=== PATIENT | male | born 1990 | race Caucasian/White ===

== ENCOUNTER 2017-01-23 13:53 | Emergency (ER) | payer SELFPAY ==
[2017-01-23 14:08] VITALS: BP 151/66
--- NOTE | 2017-01-25 11:43 | UC ---
Ear Complaint HPI - HPI Summary HPI Summary: 26 year old male presents with complains of left ear pain/fulness. - History of Current Complaint Chief Complaint: UCEar Stated Complaint: PLUGGED EAR Time Seen by Provider: 01/23/17 14:39 Hx Obtained From: Patient Onset/Duration: Sudden Onset Severity Initially: Moderate Severity Currently: Moderate Pain Intensity: 0 Pain Scale Used: 0-10 Numeric - Allergies/Home Medications Allergies/Adverse Reactions: Allergies Allergy/AdvReac Type Severity Reaction Status Date / Time Penicillins Allergy Intermediate Unknown Unverified 06/15/14 09:33 Reaction Details PMH/Surg Hx/FS Hx/Imm Hx Previously Healthy: Yes - Surgical History Surgical History: Yes Surgery Procedure, Year, and Place: ta as a child - Social History Alcohol Use: Occasionally Substance Use Type: None Smoking Status (MU): Heavy Every Day Tobacco Smoker Type: Cigarettes Amount Used/How Often: 1 ppd Length of Time of Smoking/Using Tobacco: 6 years Have You Smoked in the Last Year: No Review of Systems Constitutional: Negative Skin: Negative Eyes: Negative ENT: Ear Ache - left ear pain Respiratory: Negative Cardiovascular: Negative Gastrointestinal: Negative Genitourinary: Negative Motor: Negative Neurovascular: Negative Musculoskeletal: Negative Neurological: Negative Psychological: Negative All Other Systems Reviewed And Are Negative: Yes Physical Exam Triage Information Reviewed: Yes Vital Signs: Initial Vital Signs Temp 37.3 C 01/23/17 14:03 Pulse 59 01/23/17 14:03 Resp 16 01/23/17 14:03 BP 151/66 01/23/17 14:03 Pulse Ox 100 01/23/17 14:03 Vital Signs Reviewed: Yes Eye Exam: Normal ENT: Positive: Other: - left ear pain Dental Exam: Normal Neck exam: Normal Neck: Positive: 1 Respiratory Exam: Normal Cardiovascular Exam: Normal Abdominal Exam: Normal Musculoskeletal Exam: Normal Neurological Exam: Normal Psychological Exam: Normal Skin Exam: Normal Ear Complaint Course/Dx - Differential Dx/Diagnosis Provider Diagnoses: left ear pain. left cerumen impaction Discharge - Discharge Plan Condition: Stable Disposition: HOME Prescriptions: Azithromyxin RENETTA (NF) [Z-Renetta (Zithromax) 250 mg tabs #6] 2 tab PO .TODAY, THEN 1 DAILY #6 tab Neomyc/Polym/HC 1% OTIC SUSP* [Cortisporin Otic Susp 1%*] 4 drop LEFT EAR QID # 1 btl Patient Education Materials: Otitis Externa (ED), Cerumen Impaction (ED), Otitis Media (ED) Forms: *Work Release Referrals: Rolly Prince MD [Primary Care Provider] -
== END 2017-01-23 15:21 | disposition home or self-care (01) ==
LOC: UCEAST 13:53
DX: H61.22 Impacted cerumen, left ear (principal); F17.210 Nicotine dependence, cigarettes, uncomplicated; Z88.0 Allergy status to penicillin
CPT/HCPCS: 99213; G0463

== ENCOUNTER 2017-02-19 12:19 | Emergency (ER) | payer SELFPAY ==
[2017-02-19 13:05] VITALS: BP 155/85
--- NOTE | 2017-02-19 14:36 | UC ---
Ear Complaint HPI - HPI Summary HPI Summary: PT HERE WITH PERSISTENT EAR PAIN AND MUFFLED HEARING OVER THE PAST MONTH. WAS SEEN AT [facility] 01/23/17 AND TX WITH AZITH AND CORTISPORIN OTIC. WAX WAS IRRIGATED AT THAT TIME. PT DOES NOT FEEL ANY BETTER. ALSO HAS DEVELOPED URI SX FOR THE PAST 5 DAYS. COUGH, CONGESTION, SUBJECTIVE FEVER AND COX. - History of Current Complaint Chief Complaint: UCEar Stated Complaint: THROAT,EAR COMPLAINT Time Seen by Provider: 02/19/17 14:15 Hx Obtained From: Patient, Family/Drapery Cutter Machine - GF Onset/Duration: Gradual Onset, Lasting Weeks, Still Present Severity Initially: Moderate Severity Currently: Moderate Pain Intensity: 7 Pain Scale Used: 0-10 Numeric Aggravating Factors: Nothing Alleviating Factors: Nothing Associated Signs/Symptoms: Positive: Hearing Loss, URI Symptoms. Negative: Discharge Related History: Smoking - Allergies/Home Medications Allergies/Adverse Reactions: Allergies Allergy/AdvReac Type Severity Reaction Status Date / Time Penicillins Allergy Intermediate Unknown Unverified 02/19/17 13:05 Reaction Details Home Medications: Home Medications Acetaminophen [Acetaminophen Extra Stren] 1,000 mg PO ONCE 02/19/17 [History Confirmed 02/19/17] PMH/Surg Hx/FS Hx/Imm Hx Previously Healthy: Yes - Surgical History Surgical History: Yes Surgery Procedure, Year, and Place: ta as a child - Family History Known Family History: Positive: Hypertension - Social History Alcohol Use: Occasionally Substance Use Type: None Smoking Status (MU): Heavy Every Day Tobacco Smoker Type: Cigarettes Amount Used/How Often: 1 ppd Length of Time of Smoking/Using Tobacco: 6 years Have You Smoked in the Last Year: No Review of Systems Constitutional: Fever, Fatigue ENT: Ear Ache, Nasal Discharge Respiratory: Cough Cardiovascular: Negative Gastrointestinal: Negative Neurological: Headache All Other Systems Reviewed And Are Negative: Yes Physical Exam Triage Information Reviewed: Yes Appearance: Well-Appearing, No Pain Distress, Well-Nourished Vital Signs: Initial Vital Signs Temp 98.4 F 02/19/17 12:57 Pulse 69 02/19/17 12:57 Resp 16 02/19/17 12:57 BP 155/85 02/19/17 12:57 Pulse Ox 99 02/19/17 12:57 Vital Signs Reviewed: Yes Eyes: Positive: Conjunctiva Clear ENT: Positive: Hearing grossly normal, Pharyngeal erythema, Other - RIGHT TM SLIGHTLY ERYTHEMATOUS SUPERIORLY Neck: Positive: Supple, Nontender, No Lymphadenopathy Respiratory Exam: Normal Cardiovascular Exam: Normal Abdomen Description: Positive: Soft Musculoskeletal: Positive: No Edema Neurological: Positive: Alert Psychological: Positive: Age Appropriate Behavior Skin: Negative: rashes Ear Complaint Course/Dx - Differential Dx/Diagnosis Provider Diagnoses: 1. RIGHT AOM. 2. ACUTE URI. 3. HEARING LOSS Discharge - Discharge Plan Condition: Stable Disposition: HOME Prescriptions: Cephalexin CAP* [Keflex 500 CAP*] 1,000 mg PO BID #28 cap Patient Education Materials: Hearing Loss (ED), Otitis Media (ED), Upper Respiratory Infection (ED) Referrals: Rolly Prince MD [Primary Care Provider] - If Needed Additional Instructions: YOU HAVE WHAT LOOKS LIKE A VERY EARLY EAR INFECTION ON THE RIGHT. THIS MAY CLEAR ON IT'S OWN WITHOUT TREATMENT. IF YOUR SYMPTOMS ARE NOT IMPROVING OVER THE NEXT FEW DAYS GO AHEAD AND FILL RX FOR ANTIBIOTIC. FOLLOW-UP WITH ENT FOR YOUR HEARING LOSS. THERE IS NO WAX ON EXAM TODAY. [facility] [place] DR. NOLA GALLO Address: [address] [place] [id number] [facility] (Tuesdays) Phone Inez: [facility] [place] D[facility]. [facility] [phone]
== END 2017-02-19 14:36 | disposition home or self-care (01) ==
LOC: UCCORT 12:19
DX: H66.91 Otitis media, unspecified, right ear (principal); J06.9 Acute upper respiratory infection, unspecified; H91.90 Unspecified hearing loss, unspecified ear; F17.210 Nicotine dependence, cigarettes, uncomplicated
CPT/HCPCS: 99212; G0463

== ENCOUNTER 2018-09-06 17:04 | Emergency (ER) | payer SELFPAY ==
[2018-09-06 17:18] VITALS: BP 148/78
[2018-09-06] MEDS ORDERED: HYDROcodone/ACETAMIN 5-325 MG* 1 TAB PO ONE ×2 (17:33→19:08)
--- NOTE | 2018-09-06 17:40 | UC ---
Lower Extremity/Ankle HPI - HPI Summary HPI Summary: 3 OR 4 DAYS AGO [place] PATIENT SOMEHOW HURT HIS RIGHT FOOT. HE IS NOT SURE IF HE TRIPPED OVER IT OR KICKED SOMETHING BUT SINCE THEN HE HAS HAD INCREASING PAIN, REDNESS AND SWELLING. PURULENT DRAINAGE COMING FROM A SORE ON THE FOURTH TOE. FEVER OVER THE PAST 2 DAYS TMAX 102. - History of Current Complaint Chief Complaint: UCLowerExtremity Stated Complaint: TOE INJURY Time Seen by Provider: 09/06/18 17:27 Hx Obtained From: Patient Onset/Duration: Sudden Onset, Lasting Days, Still Present Severity Initially: Moderate Severity Currently: Moderate Pain Intensity: 8 Pain Scale Used: 0-10 Numeric Aggravating Factor(s): Standing, Ambulation Alleviating Factor(s): Rest Able to Bear Weight: Yes - WITH PAIN - Allergies/Home Medications Allergies/Adverse Reactions: Allergies Allergy/AdvReac Type Severity Reaction Status Date / Time Penicillins Allergy Unknown Verified 09/06/18 17:19 Reaction Details PMH/Surg Hx/FS Hx/Imm Hx Psychological History: Anxiety - Surgical History Surgical History: Yes Surgery Procedure, Year, and Place: ta as a child - Family History Known Family History: Positive: Hypertension - Social History Alcohol Use: None Substance Use Type: None Smoking Status (MU): Heavy Every Day Tobacco Smoker Type: Cigarettes Amount Used/How Often: 1 ppd Length of Time of Smoking/Using Tobacco: 6 years Have You Smoked in the Last Year: No Review of Systems All Other Systems Reviewed And Are Negative: Yes Constitutional: Positive: Negative Skin: Positive: Other - ERYTHEMA RIGHT FOOT Respiratory: Positive: Negative Cardiovascular: Positive: Negative Gastrointestinal: Positive: Negative Musculoskeletal: Positive: Arthralgia, Decreased ROM, Edema Physical Exam Triage Information Reviewed: Yes Appearance: Well-Appearing, No Pain Distress, Well-Nourished Vital Signs: Initial Vital Signs Temp 98.8 F 09/06/18 17:11 Pulse 88 09/06/18 17:11 Resp 16 09/06/18 17:11 BP 148/78 09/06/18 17:11 Pulse Ox 97 09/06/18 17:11 Vital Signs Reviewed: Yes Eyes: Positive: Conjunctiva Clear ENT: Positive: Hearing grossly normal Neck: Positive: Supple Respiratory: Positive: No respiratory distress, No accessory muscle use Cardiovascular: Positive: Pulses Normal Abdomen Description: Positive: Soft Musculoskeletal: Positive: ROM Limited @ - RIGHT FOOT AND ANKLE, Edema @ - RIGHT FOOT AND ANKLE, Other: - TTP RIGHT 4TH TOE AND DIFFUSELY OVER BRIDGE OF FOOT AND LATERAL MALLEOLUS Neurological: Positive: Alert Psychological: Positive: Age Appropriate Behavior Skin: Positive: Other - RIGHT 4TH TOE ERYTHEMA EXTENDING PROXIMALLY TO MID FOOT. OPEN SORE LATERAL ASPECT OF RIGHT 4TH TOE WHERE IT PRESSES AGAINST 5TH TOE.. Negative: Rashes Diagnostics - Radiology RIGHT FOOT AND ANKLE XRAYS Radiology Interpretation Completed By: Radiologist Summary of Radiographic Findings: NO RADIOGRAPHICALLY APPARENT FRACTURE OR DISLOCATION INVOLVING THE RIGHT. ANKLE OR RIGHT FOOT. Lower Extremity Course/Dx - Course Course Of Treatment: [facility] #: [id number] - UNREMARKABLE X-RAY READ NEGATIVE FOR FRACTURE HOWEVER GIVEN PATIENT'S CLINICAL PRESENTATION I AM CONCERNED THERE MAY BE AN OCCULT FRACTURE IN THE PROXIMAL PHALANX OF THE RIGHT FOURTH TOE. PATIENT IS EXQUISITELY TENDER AND SWOLLEN UP TO HIS ANKLE. HE IS OOZING FROM AN OPEN SORE ON THE LATERAL ASPECT OF HIS FOURTH TOE. CULTURE SENT. BANDAGE APPLIED. GIVEN THAT PATIENT REPORTS HAVING FEVER OVER THE PAST COUPLE OF DAYS I'M CONCERNED THAT PATIENT MAY BECOME SEPTIC FROM THIS INFECTION. HE IS DECLINING TRANSFER TO THE EMERGENCY ROOM. I ADVISED HIM THAT IF HE DECLINES TRANSFER HE MAY BE RISKING WORSENING OF HIS CONDITION WHICH COULD BE A THREAT TO HIS MEDICAL HEALTH, LIFE AND SAFETY. HE VERBALIZES UNDERSTANDING AND CONTINUES TO DECLINE TRANSFER. HE ALSO DECLINES ANY BLOOD WORK TODAY. PATIENT IS CONCERNED ABOUT COST HE DOES NOT HAVE INSURANCE. BACTRIM GIVEN TO COVER FOR INFECTION. IBUPROFEN FOR PAIN. HYDROCODONE/ACETAMINOPHEN FOR BREAKTHROUGH. PATIENT PLACED IN A CAM BOOT. HE WILL CALL [facility] SATURDAY MORNING FOR A FOLLOW-UP APPOINTMENT. - Differential Dx/Diagnosis Provider Diagnosis: Abscess of fourth toe of right foot Discharge - Sign-Out/Discharge Documenting (check all that apply): Patient Departure All imaging exams completed and their final reports reviewed: Yes - Discharge Plan Condition: Stable Disposition: HOME Prescriptions: HYDROcodone/ACETAMIN 5-325 MG* [Wing 5-325 TAB*] 1 tab PO Q6H PRN #15 tab MDD 4 PRN Reason: Pain Ibuprofen TAB* [Motrin TAB* 600 MG] 1 tab PO Q6H PRN #30 tab PRN Reason: Pain Sulfamethox/Trimethoprim DS* [Bactrim DS 800/160 TAB*] 1 tab PO BID #18 tab Patient Education Materials: Toe Fracture (ED), Abscess (ED) Referrals: Rolly Prince MD [Primary Care Provider] - If Needed Lety Gonzalez MD [Medical Doctor] - 2 Days Additional Instructions: YOUR X-RAY WAS READ NEGATIVE FOR FRACTURE HOWEVER I AM CONCERNED THERE MAY BE A SMALL CRACK IN ONE OF THE BONES OF YOUR RIGHT FOURTH TOE. YOU CERTAINLY HAVE AN INFECTION GOING ON. TAKE THE ANTIBIOTICS TWICE DAILY FOR THE FULL 10 DAYS. HOT SOAKS 4 TIMES DAILY. IN BETWEEN SOAKING MAKE SURE THAT THE AREA IS CLEAN AND DRY. USE A NONSTICK BANDAGE. CHANGE THE BANDAGE AFTER EACH SOAK AND NEEDED IF BECOMES SOILED OR WET. SPECIMEN HAS BEEN SENT FOR CULTURE. KEEP THE FOOT ELEVATED WHEN SEATED. IBUPROFEN FOR PAIN. HYDROCODONE FOR BREAKTHROUGH. IF YOU ARE NOT FEELING IMPROVED OVER THE NEXT 24-48 HOURS GO TO THE EMERGENCY ROOM WITHOUT FAIL. CALL [facility] SATURDAY MORNING TO SCHEDULE A FOLLOW-UP APPT. - Billing Disposition and Condition Condition: STABLE Disposition: Home
[2018-09-06] MEDS ORDERED: Sulfamethox/Trimethoprim DS 800/160* TAB PO ONE (19:09)
== END 2018-09-06 19:45 | disposition home or self-care (01) ==
LOC: UCEAST 17:04
DX: L02.611 Cutaneous abscess of right foot (principal); B95.61 Methicillin susceptible Staphylococcus aureus infection as the cause of diseases classified elsewhere; Z16.11 Resistance to penicillins
CPT/HCPCS: 87070; 87077; 87186; 87205; 87640; 87641; 99213; A9270-GY; G0463